=== PATIENT | male | born 1940 | race American Indian/Alaskan Native ===

== ENCOUNTER 2020-09-19 13:08 | Emergency (ER) | payer OTHER ==
[2020-09-19 13:14] VITALS: BP 125/78
--- NOTE | 2020-09-19 15:53 | Event Note ---
ED Screening Note Date of service: 09/19/20 Time: 15:50 ED Screening Note: 80-year-old male patient with reported history of dementia presents to the emergency department via EMS with reported concerns for altered mental status. Patient was found walking down the [place] by EMS and brought to the emergency department. His reported the patient as a missing person earlier today. Patient does not realize he has been reported as a missing person. He has no medical complaints. Tachycardic in triage. Focused neurological exam: Patient is oriented to person and place. He knows his 's name. He does not know the day of the week, month, or year. The patient's is not present. His baseline mental status is unknown. General: Awake, appropriately interactive, no acute distress. Neck: Supple. Full range of motion intact. Cardiovascular: Normal peripheral perfusion. Pulmonary: No respiratory distress. Patient is speaking normally without use of accessory muscles. Skin: No apparent rashes or lesions. Musculoskeletal: Moves all four extremities spontaneously with normal range of motion. Psych: Cooperative. Appropriate mood and affect. Case discussed with Dr. Beverly, attending emergency physician, who recommends proceeding with AMS work-up to include labs and imaging. I have greeted and performed a focused rapid initial assessment of this patient. A comprehensive ED assessment and evaluation of the patient, analysis of all test results, and completion of the medical decision-making process will be conducted by additional ED providers. This initial assessment/diagnostic orders/clinical plan/treatment(s) is/are subject to change based on patients health status, clinical progression and re-assessment. Further treatment and workup at subsequent clinical provider's discretion. Patient/guardian urged not to elope from the ED as their condition may be serious if not clinically assessed and managed.
== END 2020-09-19 16:40 | disposition left against medical advice (07) ==
LOC: ED 13:08
DX: R41.82 Altered mental status, unspecified (principal); Z53.21 Procedure and treatment not carried out due to patient leaving prior to being seen by health care provider

== ENCOUNTER 2021-01-01 06:43 | Emergency (ER) | payer OTHER ==
[2021-01-01 06:53] VITALS: BP 150/85
--- NOTE | 2021-01-01 08:10 | Event Note ---
ED Screening Note Date of service: 01/01/21 Time: 08:06 ED Screening Note: 80-year-old -[place] male presents to the emergency room stating that he had fallen last night 10:45 AM. Patient states that he fell off a high bed. Patient denies any loss of consciousness he states he was only down for less than 2 minutes. Patient denies any nausea no vomiting no change in vision. He does admit to a headache on the parietal right side and neck pain. Denies any weakness shortness of breath chest pain difficulty walking no loss of bowel or urine. Patient has a past medical history of dementia currently on no medications at this time. Patient was able to ambulate into the exam room. He is accompanied by his son. He is partially vaccinated as of last week. His is fully vaccinated. This initial assessment/diagnostic orders/clinical plan/treatment(s) is/are subject to change based on patients health status, clinical progression and re- assessment by fellow clinical providers in the ED. Further treatment and workup at subsequent clinical providers discretion. Patient/guardian urged not to elope from the ED as their condition may be serious if not clinically assessed and managed. Initial orders include: CT without contrast of head and neck
--- NOTE | 2021-01-01 09:28 | Cat Scan Report ---
CT CERVICAL SPINE: 01/01/2021 INDICATION / CLINICAL INFORMATION: Fall head injury and neck pain. COMPARISON: None available. FINDINGS: CT images of the cervical spine were obtained. Images are evaluated in the axial, coronal, and sagitt al planes. There is no evidence of acute abnormality. Prominent degenerative changes are present throughout the cervical spine. There is apparent fusion of the disc spaces at the C4-5 and C5-6 levels. At C6-7, the disc space is nearly completely fused. The se changes may be the result of prior surgery or degenerative process. There is prominent anterior br idging osteophytes from C3 through C7, in a pattern consistent with diffuse angiopathic skeletal hype rtrophy, degenerative process. CRANIOCERVICAL JUNCTION: Unremarkable. PARASPINAL STRUCTURES: Unremarkable IMPRESSION: No acute abnormality. Degenerative changes. All CT scans at this location are performed using dose reduction to ALARA by means of automated expos ure control. Signer Name: Dmitriy Miranda MD Signed: 01/01/2021 9:23 AM Workstation Name: [id number]
--- NOTE | 2021-01-01 09:31 | Cat Scan Report ---
CT BRAIN: 01/01/2021 INDICATION / CLINICAL INFORMATION: Fall head injury. COMPARISON: None available. FINDINGS: BRAIN/INTRACRANIAL STRUCTURES: Unenhanced CT images of the brain demonstrate no evidence of acute int racranial abnormality. Ventricles and sulci are prominent in size, consistent with age-related atrophic change. There is no evidence of acute ischemic injury, hemorrhage, or mass. There are no abnormal extra-axial fluid collections. Some chronic white matter hypoattenuation is noted incidentally. Atherosclerotic vascular calcifications are present in the distal internal carotid arteries and verte bral arteries. EXTRACRANIAL STRUCTURES: Unremarkable. IMPRESSION: No acute abnormality. Chronic and age-related changes. All CT scans at this location are performed using dose reduction to ALARA by means of automated expos ure control. Signer Name: Dmitriy Miranda MD Signed: 01/01/2021 9:27 AM Workstation Name: [id number][id number]
--- NOTE | 2021-01-01 10:34 | Emergency Department Report ---
ED Fall HPI - General Chief Complaint: Fall Stated Complaint: FALL/NECK/BCK/HEAD PAIN Source: patient Mode of arrival: Ambulatory - History of Present Illness Initial Comments: The patient was evaluated in the emergency department for symptoms described in the history of present illness. He/she was evaluated in the context of the global COVID-19 pandemic, which necessitated consideration that the patient might be at risk for infection with the virus that causes COVID-19. Institutional protocols and algorithms that pertain to the evaluation of patients at risk for COVID-19 are in a state of rapid change based on information released by regulatory bodies including the CDC and federal and state organizations. These policies and algorithms were followed during the patient's care in the emergency department. Please note that these policies, procedures and recommendations changed on a rapid basis. 80-year-old -[place] male presents to the emergency room stating that he had fallen last night 10:45 AM. Patient states that he fell off a high bed. Patient denies any loss of consciousness he states he was only down for less than 2 minutes. Patient denies any nausea no vomiting no change in vision. He does admit to a headache on the parietal right side and neck pain. Denies any weakness shortness of breath chest pain difficulty walking no loss of bowel or urine. Patient has a past medical history of dementia currently on no medications at this time. Patient was able to ambulate into the exam room. He is accompanied by his son. He is partially vaccinated as of last week. His is fully vaccinated. - Related Data Allergies Allergy/AdvReac Type Severity Reaction Status Date / Time No Known Allergies Allergy Verified 01/01/21 06:51 ED Review of Systems ROS: Stated complaint: FALL/NECK/BCK/HEAD PAIN Other details as noted in HPI ED Past Medical Hx - Past Medical History Previous Medical History?: Yes Hx COPD: Yes Additional medical history: Dementia ED Physical Exam - General Limitations: No Limitations General appearance: alert, in no apparent distress - Head Head exam: Present: atraumatic, normocephalic - Eye Eye exam: Present: normal appearance - ENT ENT exam: Present: mucous membranes moist, TM's normal bilaterally, normal external ear exam - Neck Neck exam: Present: normal inspection, full ROM - Respiratory Respiratory exam: Present: normal lung sounds bilaterally. Absent: respiratory distress, chest wall tenderness - Cardiovascular Cardiovascular Exam: Present: regular rate, normal rhythm. Absent: systolic murmur, diastolic murmur, rubs, gallop - Extremities Exam Extremities exam: Present: full ROM - Back Exam Back exam: Present: normal inspection, full ROM - Neurological Exam Neurological exam: Present: alert, oriented X3, normal gait - Expanded Neurological Exam Expanded Cranial nerves: EOM's Intact: Normal, Gag Reflex: Normal, Tongue Deviation: Normal, Nystagmus: Normal, Facial Sensation: Normal, Facial Palsy with Forehead Movement: Normal, Facial Palsy without Forehead Movement: Normal Cerebellar function: Finger to Nose: Normal, Heel to Ingram: Normal, Romberg: Normal Upper motor neuron: Simone Neglect: Normal, Pronator Drift: Normal, Babinski Sign: Normal, Sensory Extinction: Normal Sensory exam: Upper Extremity Light Touch: Normal, Upper Extremity Pin Prick: Normal, Upper Extremity Temperature: Normal, UE 2 Point Discrimination: Normal, Lower Extremity Light Touch: Normal, Lower Extremity Pin Prick: Normal, Lower Extremity Temperature: Normal, LE 2 Point Discrimination: Normal Motor strength exam: RUE: 4, LUE: 4, RLE: 4, LLE: 4 Best Eye Response ([place]): (4) open spontaneously Best Motor Response ([place]): (6) obeys commands Best Verbal Response ([place]): (5) oriented [place] Total: 15 - Psychiatric Psychiatric exam: Present: normal affect, normal mood - Skin Skin exam: Present: warm, dry, intact, normal color. Absent: rash ED Course Vital Signs 01/01/21 06:52 Temperature 98.5 F Pulse Rate 61 Respiratory 20 Rate Blood Pressure 150/85 O2 Sat by Pulse 98 Oximetry ED Medical Decision Making - Medical Decision Making 80-year-old -[place] male presents to the emergency room stating that he had fallen last night 10:45 AM. Patient states that he fell off a high bed. Patient denies any loss of consciousness he states he was only down for less than 2 minutes. Patient denies any nausea no vomiting no change in vision. He does admit to a headache on the parietal right side and neck pain. Denies any weakness shortness of breath chest pain difficulty walking no loss of bowel or urine. Patient has a past medical history of dementia currently on no medications at this time. Patient was able to ambulate into the exam room. He is accompanied by his son. He is partially vaccinated as of last week. His is fully vaccinated. CT of neck and head shows no acute abnormalities. Neck shows chronic this fusions and degenerative disc disease. Patient to take Tylenol for pain management. Concussion precautions discussed with patient and family. Recommend for patient to follow-up in the next 2 to 3 days with his primary care provider Critical care attestation.: If time is entered above; I have spent that time in minutes in the direct care of this critically ill patient, excluding procedure time. ED Disposition Clinical Impression: Fall Qualifiers: Encounter type: initial encounter Qualified Code(s): W19.XXXA - Unspecified fall, initial encounter Head injury, acute Qualifiers: Encounter type: initial encounter Qualified Code(s): S09.90XA - Unspecified injury of head, initial encounter Disposition: HOME / SELF CARE / HOMELESS Is pt being admited?: No Does the pt Need Aspirin: No Condition: Stable Additional Instructions: CT of neck and head shows no acute abnormalities. Neck shows chronic this fusions and degenerative disc disease. Patient to take Tylenol for pain management. Concussion precautions discussed with patient and family. Recommend for patient to follow-up in the next 2 to 3 days with his primary care provider Referrals: PRIMARY CARE, [Primary Care Provider] - 3-5 Days Your, primary care provider [Other] - 3-5 Days Forms: Accompanied Note
== END 2021-01-01 11:33 | disposition home or self-care (01) ==
LOC: ED 06:43
DX: S09.90XA Unspecified injury of head, initial encounter (principal); F03.90 Unspecified dementia, unspecified severity, without behavioral disturbance, psychotic disturbance, mood disturbance, and anxiety; J44.9 Chronic obstructive pulmonary disease, unspecified; W06.XXXA Fall from bed, initial encounter; Y93.89 Activity, other specified; Y92.89 Other specified places as the place of occurrence of the external cause; Y99.8 Other external cause status
CPT/HCPCS: 70450; 72125